=== PATIENT | male | born 1980 | race Caucasian/White ===

== ENCOUNTER → 2018-04-27 00:50 | Outpatient (CLI) | payer MEDICAID, SELFPAY ==
[2018-04-27 11:09] LABS: HCT 44.2 % (40.0-50.0); HGB 14.7 g/dL (13.5-17.5); Mean Corp. HGB Concentration 33.3 g/dL (32.0-36.0); Mean Corpuscular Hemoglobin 31.2 pg (27.0-33.0); Mean Corpuscular Volume 93.8 fL (80-95); Mean Platelet Volume 10.9 fL (8.0-11.0); Platelet Count 244 x1000/uL (130-400); RBC 4.71 m/cumm (4.50-6.00); RBC Distribution Width 13.5 % (11.8-14.1); White Blood Cell Count 6.75 k/cumm (4.4-10.8)
[2018-04-27 11:29] LABS: Hemoglobin A1C 6.4 % (4.5-6.2)
[2018-04-27 11:33] LABS: ALT 36 U/L (12-78); AST 21 U/L (15-37); Albumin 3.6 g/dL (3.4-5.0); Alkaline Phosphatase 87 U/L (46-116); BUN 16 mg/dL (7-18); Bilirubin, Total 0.3 mg/dL (0.2-1.0); Calcium 8.4 mg/dL (8.5-10.1); Chloride 106 mmol/L (98-107); Cholesterol 139 mg/dL (50-200); Glucose 131 mg/dL (70-100); HDL Cholesterol 30 mg/dL (40-60); LDL CHOLESTEROL 92 mg/dL (<100); Potassium 4.3 mmol/L (3.5-5.1); Sodium 141 mmol/L (136-145); Total Protein 6.9 g/dL (6.4-8.2); Triglyceride 138 mg/dL (30-150)
== END ==
PROVIDERS: PCP Family Medicine; Visit Provider Family Medicine
DX: E78.5 Hyperlipidemia, unspecified (principal); R73.03 Prediabetes; G47.33 Obstructive sleep apnea (adult) (pediatric); S39.012A Strain of muscle, fascia and tendon of lower back, initial encounter
CPT/HCPCS: 36415; 80053; 80061; 83721; 85027; 83036; 83735

== ENCOUNTER 2018-12-05 03:01 | Outpatient (CLI) | payer MEDICAID, SELFPAY ==
[2018-12-05 11:13] LABS: Hemoglobin A1C 6.2 % (4.5-6.2)
[2018-12-05 11:17] LABS: ALT 51 U/L (12-78); AST 23 U/L (15-37); Albumin 4.1 g/dL (3.4-5.0); Alkaline Phosphatase 83 U/L (46-116); Anion Gap 12.4 mmol/L (3-11); BUN 18 mg/dL (7-18); Bilirubin, Total 0.4 mg/dL (0.2-1.0); CO2 25.6 mmol/L (21.0-32.0); CREATININE 1.16 mg/dL (0.70-1.30); Calcium 9.1 mg/dL (8.5-10.1); Chloride 104 mmol/L (98-107); Cholesterol 163 mg/dL (50-200); Glucose 133 mg/dL (70-100); HDL Cholesterol 36 mg/dL (40-60); LDL CHOLESTEROL 102 mg/dL (<100); Potassium 4.2 mmol/L (3.5-5.1); Sodium 142 mmol/L (136-145); Total Protein 7.9 g/dL (6.4-8.2); Triglyceride 177 mg/dL (30-150)
== END 2018-12-05 03:21 ==
PROVIDERS: PCP Family Medicine; Visit Provider Family Medicine
DX: Z11.9 Encounter for screening for infectious and parasitic diseases, unspecified (principal); E78.5 Hyperlipidemia, unspecified; Z00.00 Encounter for general adult medical examination without abnormal findings
CPT/HCPCS: 36415; 80053; 80061; 83721; 83036

== ENCOUNTER 2019-03-11 10:32 | Outpatient (CLI) | payer MEDICAID, SELFPAY ==
[2019-03-11 13:02] LABS: ALT 41 U/L (12-78); AST 25 U/L (15-37); Albumin 3.5 g/dL (3.4-5.0); Alkaline Phosphatase 75 U/L (46-116); Anion Gap 9.1 mmol/L (3-11); BUN 15 mg/dL (7-18); Bilirubin, Total 0.4 mg/dL (0.2-1.0); CO2 26.9 mmol/L (21.0-32.0); CREATININE 0.89 mg/dL (0.70-1.30); Calcium 8.6 mg/dL (8.5-10.1); Calculated LDL 85; Chloride 106 mmol/L (98-107); Cholesterol 138 mg/dL (50-200); Glucose 120 mg/dL (70-100); HDL Cholesterol 29 mg/dL (40-60); Hemoglobin A1C 6.3 % (4.5-6.2); Potassium 4.4 mmol/L (3.5-5.1); Sodium 142 mmol/L (136-145); Total Protein 6.7 g/dL (6.4-8.2); Triglyceride 122 mg/dL (30-150)
== END 2019-03-11 10:52 ==
PROVIDERS: PCP Family Medicine; Visit Provider Family Medicine
DX: E11.69 Type 2 diabetes mellitus with other specified complication (principal); E66.9 Obesity, unspecified; E78.5 Hyperlipidemia, unspecified; Z00.00 Encounter for general adult medical examination without abnormal findings
CPT/HCPCS: 36415; 80053; 80061; 83721; 83036

== ENCOUNTER 2019-09-09 07:00 | Outpatient (CLI) | payer MEDICAID, SELFPAY ==
[2019-09-09 13:28] LABS: Hemoglobin A1C 6.4 % (4.5-6.2)
[2019-09-09 13:29] LABS: ALT 36 U/L (16-63); AST 17 U/L (15-37); Albumin 3.8 g/dL (3.4-5.0); Alkaline Phosphatase 79 U/L (46-116); Anion Gap 10.4 mmol/L (3-11); BUN 14 mg/dL (7-18); Bilirubin, Total 0.5 mg/dL (0.2-1.0); CO2 26.6 mmol/L (21.0-32.0); CREATININE 0.99 mg/dL (0.70-1.30); Calcium 8.6 mg/dL (8.5-10.1); Calculated LDL 98 mg/dL; Chloride 106 mmol/L (98-107); Cholesterol 160 mg/dL (<200); Glucose 122 mg/dL (74-106); HDL Cholesterol 35 mg/dL (40-60); Potassium 4.2 mmol/L (3.5-5.1); Sodium 143 mmol/L (136-145); Total Protein 7.2 g/dL (6.4-8.2); Triglyceride 139 mg/dL (<150)
== END 2019-09-09 07:20 ==
PROVIDERS: PCP Family Medicine; Visit Provider Family Medicine
DX: E78.5 Hyperlipidemia, unspecified (principal); E11.9 Type 2 diabetes mellitus without complications; E78.6 Lipoprotein deficiency
CPT/HCPCS: 36415; 80053; 80061; 83036

== ENCOUNTER 2020-05-27 05:09 | Outpatient (CLI) | payer OTHER, SELFPAY ==
[2020-05-27 09:37] LABS: HCT 44.1 % (40.0-50.0); HGB 14.8 g/dL (13.5-17.5); MCH 31.2 pg (27.0-33.0); MCHC 33.6 % (32.0-36.0); MCV 92.8 fL (80-95); MPV 10.4 fL (8.0-11.0); Platelet Count 255 10^3/uL (130-400); RBC 4.75 10^6/uL (4.36-5.78); RDW-SD 44.4 fL; WBC 6.85 10^3/uL (4.4-10.8)
[2020-05-27 09:59] LABS: Hemoglobin A1C 6.7 % (<5.7)
[2020-05-27 10:36] LABS: ALT 43 U/L (16-63); AST 19 U/L (15-37); Albumin 3.7 g/dL (3.4-5.0); Alkaline Phosphatase 79 U/L (46-116); Anion Gap 9.4 mmol/L (3-11); BUN 16 mg/dL (7-18); Bilirubin, Total 0.3 mg/dL (0.2-1.0); CO2 25.6 mmol/L (21.0-32.0); CREATININE 0.92 mg/dL (0.70-1.30); Calcium 8.4 mg/dL (8.5-10.1); Calculated LDL 89 mg/dL (<100); Chloride 108 mmol/L (98-107); Cholesterol 152 mg/dL (<200); Glucose 123 mg/dL (74-106); HDL Cholesterol 32 mg/dL (40-60); Potassium 4.5 mmol/L (3.5-5.1); Sodium 143 mmol/L (136-145); Triglyceride 156 mg/dL (<150)
== END 2020-05-27 05:29 ==
PROVIDERS: PCP Family Medicine; Visit Provider Family Medicine
DX: E11.9 Type 2 diabetes mellitus without complications (principal); E78.5 Hyperlipidemia, unspecified
CPT/HCPCS: 36415; 80053; 80061; 85027; 83036

== ENCOUNTER 2021-03-10 09:39 | Outpatient (CLI) | payer MEDICAID, SELFPAY ==
[2021-03-10 12:49] LABS: Abs Immature Grans 0.02 10^3/uL (0.0-0.06); Absolute Basophil Count 0.11 10^3/uL (0.0-0.2); Absolute Eosinophil Count 0.21 10^3/uL (0.0-0.7); Absolute Lymphocyte Count 1.79 10^3/uL (1.2-3.4); Absolute Monocyte Count 0.53 10^3/uL (0.1-0.8); Absolute Neutrophil Count 3.94 10^3/uL (1.2-6.7); Basophils % 1.7; Eosinophils % 3.2; HCT 44.8 % (40.0-50.0); Immature Grans % 0.3; Lymphocytes % 27.1; MCH 31.3 pg (27.0-33.0); MCHC 33.5 % (32.0-36.0); MCV 93.5 fL (80-95); MPV 10.9 fL (8.0-11.0); Neutrophils % 59.7; Nucleated RBC 0 %; Platelet Count 227 10^3/uL (130-400); RBC 4.79 10^6/uL (4.36-5.78); RDW 12.6 % (11.8-14.1); RDW-SD 43.6 fL
[2021-03-10 13:01] LABS: Hemoglobin A1C 7.8 % (<5.7)
[2021-03-10 13:03] LABS: ALT 61 U/L (16-63); AST 31 U/L (15-37); Albumin 3.6 g/dL (3.4-5.0); Alkaline Phosphatase 85 U/L (46-116); Anion Gap 9.7 mmol/L (3-11); BUN 15 mg/dL (7-18); Bilirubin, Total 0.4 mg/dL (0.2-1.0); CO2 27.3 mmol/L (21.0-32.0); Calcium 8.8 mg/dL (8.5-10.1); Calculated LDL 109 mg/dL (<100); Chloride 103 mmol/L (98-107); Cholesterol 180 mg/dL (<200); Glucose 192 mg/dL (74-106); HDL Cholesterol 34 mg/dL (40-60); Potassium 4.4 mmol/L (3.5-5.1); Sodium 140 mmol/L (136-145); Total Protein 7.1 g/dL (6.4-8.2); Triglyceride 188 mg/dL (<150)
== END 2021-03-10 09:40 | disposition home or self-care (01) ==
PROVIDERS: PCP Family Medicine; Visit Provider Nurse Practitioner Family
DX: E11.9 Type 2 diabetes mellitus without complications (principal); E78.41 Elevated Lipoprotein(a); R73.03 Prediabetes
CPT/HCPCS: 36415; 80053; 80061; 83036; 85025

== ENCOUNTER 2021-04-05 01:17 | Outpatient (CLI) | payer MEDICAID, SELFPAY ==
--- NOTE | 2021-04-05 08:30 | DI.US_ITS ---
Exam(s) US LOWER EXTREMITY VENOUS RT EXAM: US LOWER EXTREMITY VENOUS RT CLINICAL HISTORY: RLE swelling/redness worsening,r60.0 TECHNIQUE: Grayscale, color, and doppler imaging of the deep venous system of the right lower extrem ity was performed. COMPARISON: No exams were available for comparison FINDINGS: There is no evidence of intraluminal thrombus and there is normal compression and augmentation demons trated within the common femoral vein, femoral vein, and popliteal vein. In the ipsilateral calf the interrogated veins also exhibit normal compression/ augmentation properti es. The ipsilateral saphenofemoral junction is patent. There are varicose veins in the right calf-area of redness/discoloration. All of these veins are com pressible and exhibit no evidence of intraluminal thrombus. IMPRESSION: 1. No evidence of DVT in the right lower extremity. 2. Patent varicose veins right calf, as described above. No evidence of superficial thrombophlebiti s. DATA REPOSITORY:
== END 2021-04-05 01:37 ==
PROVIDERS: PCP Family Medicine; Visit Provider Nurse Practitioner Family
DX: I83.91 Asymptomatic varicose veins of right lower extremity (principal)
CPT/HCPCS: 93971

== ENCOUNTER 2021-08-06 00:51 | Outpatient (CLI) | payer MEDICAID, SELFPAY ==
--- NOTE | 2021-08-06 07:42 | DI.RAD_ITS ---
Exam(s) XR LUMBAR SPINE COMP W FLEX/EX EXAM: XR LUMBAR SPINE COMP W FLEX/EX CLINICAL HISTORY: acute low back pain at night,? ALIGNMENT,M54.50 TECHNIQUE: COMPARISON: No exams were available for comparison FINDINGS: Seven views were obtained including flexion and extension lateral views. There is a transitional lum bosacral vertebra. The intervertebral disc spaces appear fairly well maintained. Mild hypertrophic degenerative changes of endplates and facet joints noted throughout the lumbar region. No evidence o f compression fracture. Flexion extension views are unremarkable. IMPRESSION: Mild degenerative changes of the lumbar spine. RADIATION DOSE DELIVERED: Total DLP
== END 2021-08-06 01:11 ==
PROVIDERS: PCP Family Medicine; Visit Provider Family Medicine
DX: M54.59 Other low back pain (principal); M47.816 Spondylosis without myelopathy or radiculopathy, lumbar region
CPT/HCPCS: 72114

== ENCOUNTER 2021-08-14 11:15 | Emergency (ER) | payer MEDICAID, SELFPAY ==
[2021-08-14] VITALS (44 sets, daily range): BP systolic 111–137; BP diastolic 60–89; PULSE 66–87; RESP 11–36; TEMP 36.6–36.7; O2SAT 95–99
--- NOTE | 2021-08-14 11:15 | RT.EKG_ITS ---
APPROVED REPORT Exam: Resting ECG Reason for Exam: chest pain , sob Patient Location: E HR:79 bpm ECG Measurements Heart Rate 79 AXIS WV 160 P 11 QRSd 99 QRS -13 QT 352 T 4 QTc 405 Conclusion Sinus rhythm...normal P axis, V-rate 60- 99 Low voltage, precordial leads...precordial leads <1.0mV. Sinus. T wave inversion in lead III. No STEMI. I have reviewed and interpreted ECG and agree with software generated interpretation.
--- NOTE | 2021-08-14 11:15 | DI.RAD_ITS ---
Exam(s) XR CHEST 2V PA LATERAL EXAM: XR CHEST 2V PA LATERAL CLINICAL HISTORY: CP TECHNIQUE: COMPARISON: CR ABD FLAT UPRIGHT PA CHEST from 10/20/2013 FINDINGS: There is mild elevation of the diaphragm on the right as seen on prior chest radiograph of October 14. There is no gross pleural effusion. Lungs appear clear. The heart is not enlarged. IMPRESSION: No evidence of acute process. RADIATION DOSE DELIVERED: Total DLP
--- NOTE | 2021-08-14 11:47 | W.ED.GENAD ---
Discharge Plan Disposition Patient Disposition: HOME Condition: Stable Discharge Details Clinical Impression: Chest pain Primary Care Provider: Lilian Perkins ED Provider: Danni Aguilera Home Meds and New Rx's Prescriptions: Continued ibuprofen 800 mg tablet 800 mg PO TID PRN (Reason: pain) Qty: 30 RF: 2 (DME) compr.stocking,knee,long,x-lrg Misc See Rx Instructions .ROUTE .MEDSUPPLY Qty: 2 RF: 0 (DME) blood-glucose meter [Blood Glucose Monitoring] Kit See Rx Instructions .ROUTE .MEDSUPPLY Qty: 1 RF: 0 (DME) Blood Glucose Test Strip See Rx Instructions .ROUTE .MEDSUPPLY Qty: 100 RF: 11 (DME) lancets [Fingerstix Lancets] Misc See Rx Instructions .ROUTE .MEDSUPPLY Qty: 100 RF: 11 lisinopril-hydrochlorothiazide 20-12.5 mg tablet 1 tab PO DAILY Qty: 90 RF: 4 metformin 500 mg tablet 1,000 mg PO BID Qty: 180 RF: 3 CPAP 1 ea RF: 0 cyclobenzaprine 5 mg tablet 5 mg PO .qHS and qd prn PRN (Reason: muscle spasm) Qty: 20 RF: 0 Discharge Instructions Instructions: Chest Pain (ED) Additional Instructions: As discussed, your imaging and labs are reassuring here today. No evidence to suggest cardiac cause today. As your pain seems to be so associated with certain positions, I am concerned that he may be having muscular discomfort. This may be associated with your abnormal sleeping position secondary to your chronic back pain. Please keep your upcoming appointment with physical therapy. Would like you to follow-up with primary care in the next 1 to 2 weeks for reevaluation. Please encourage hydration. You may use Tylenol and ibuprofen as needed for discomfort. You may continue with a muscle relaxer to help with your back discomfort. If you develop increased pain, shortness of breath, difficulty breathing, fever/chills or other new/worsening symptom please seek care urgently once again. Referrals: Lilian Perkins MD [Primary Care Provider] - Discharge Data Discharge Date/Time-TO BE ENTERED AT DEPARTURE: 08/14/21 16:18 Medical Decision Making Patient is a pleasant 40-year-old gentleman presenting today with chief complaint of chest pain. States that he has some left-sided chest discomfort for the past 2 days. States it is worsened with certain movements. Reports discomfort when laying flat. Also has discomfort when going from a sitting to a standing position. However, he denies pain increasing when he is simply walking. 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 She denies any shortness of breath. Feels that when he has the discomfort such as when he is laying flat his breathing pattern may differ does not feel frankly short of breath at all. Is not endorsing any pleuritic pain. Denies any nausea or vomiting. Initially, patient was concerned that this may have been associated with acid reflux and did take Tums without any improvement. He denies any personal or familial history of cardiac disease. No radiation of discomfort. Past medical history is pertinent for low back pain, morbid obesity, SHIRLEY, type 2 diabetes, depression and hyperlipidemia. Patient has been admitted to the medication for has not been checking his glucose regularly. Sounds that he is having difficulty with his glucometer. He states that he is being treated currently by his primary care for his low back pain. This has been an ailment for the past several months. He does report that because of his back pain he is not sleeping in a different position and is questioning if this may be was causing his chest comfort. States that he often awakes with increased discomfort both in his chest as well as his neck because he is sleeping in a more upright and scrunched position. On exam, patient appears nontoxic. Hemodynamically stable. He does have reproducible chest pain over the area of discomfort. No rash. Lungs are clear, normal cardiac rotation. Abdomen is benign. No significant lower extremity edema or calf tenderness appreciated. I did consider acute ACS. Patient is not an active smoker, again does not smoke familial history. Will obtain EKG, chest x-ray as well as a troponin. Patient is PERC negative and history is not consistent with a pulmonary embolism at this time. History exam is not consistent with dissection. I do not see indication to suggest infectious etiology at this time. He denies any cough or fever/chills. No other constitutional symptoms. Also consider musculoskeletal source particularly as he is able to link this with new sleeping position and pain is reproducible on exam. As pain is also increased when laying in a more supine position I also considered GERD. Will give aspirin as well as Mylanta. EKG was obtained and reviewed by Dr. Gomez. Patient is in sinus rhythm with a rate of 79. T wave version 1 3, no evidence of STEMI or acute ischemic etiology. Chest x-ray was reviewed by radiologist: FINDINGS: There is mild elevation of the diaphragm on the right as seen on prior chest radiograph of September 2013. There is no gross pleural effusion. Lungs appear clear. The heart is not enlarged. IMPRESSION: No evidence of acute process. Labs reviewed. No leukocytosis. Stable H&H. CMP significant for glucose of 169 which appears to be baseline for the patient. No other significant abnormalities. Initial troponin within normal limits. Plan for delta troponin. Repeat troponin remains less than 0.05. Repeat EKG was obtained, sinus rhythm with a rate of 72. No change from previous. Patient I had a discussion regarding these findings. We discussed the potential differential diagnosis. Again, his history and exam is most spent with musculoskeletal source. However, his history of diabetes and obesity does increase his risk of cardiovascular disease. We will treat this is musculoskeletal pain for now. Patient was given strict return precautions. Have asked that he follow-up with his primary care and discussed potential need for stress testing. As I am leaning much more towards a musculoskeletal cause at this time, I feel that treating this is more appropriate. Patient does have an appointment with physical therapy to begin working on his back pain. Hopefully this will mean that he can again sleep as bed and have resolution of some of his newly developing discomfort. Patient does have Flexeril at home which she can use to help with his discomfort muscle spasms, discussed dosing again with the patient. Advised that this can be sedating and not to drive will take this medication. Encourage hydration. Advised that he seek care urgently once again with any new or worsening symptoms. All his questions and concerns were addressed and he is in agreement this plan. HPI General Mode of arrival: ambulatory. Date/Time Provider Initiated Documentation: 08/14/21 11:16. Limitations to Documentation: no limitations. Information obtained by: patient and RN notes reviewed. History of Present Illness 40 year old M presents to the emergency department with the chief complaint of left sided chest pain, described as mild, with intensity rated at 3. Quality is described as aching, and is localized to the chest. Patient reports no radiation. Patient started experiencing this day(s) (2) and it has been intermittent. No relieving factors improve symptom(s), Movement worsens symptoms (rolling onto left side, laying supine, straining to get up) . Patient notes chest pain; denies cough, diaphoresis, fever/chills, loss of appetite, nausea/vomiting, rash, shortness of breath and weakness. Patient did receive the following treatments prior to arrival, none Related Data Home Medications Medication Instructions Recorded Confirmed Cpap 1 ea 05/01/15 08/04/21 ibuprofen 800 mg tablet 800 mg PO TID PRN #30 tab 11/15/18 08/15/21 Blood Glucose Test #100 each NS 01/06/20 08/04/21 blood-glucose meter #1 each 01/06/20 08/04/21 lancets #100 each 01/06/20 08/04/21 lisinopril 20 1 tab PO DAILY #90 tab 03/22/21 08/15/21 mg-hydrochlorothiazide 12.5 mg tablet metformin 500 mg tablet 1,000 mg PO BID #180 tab-cap 03/22/21 08/15/21 compr.stocking,knee,long,x-lrg #2 ea 06/02/21 08/04/21 cyclobenzaprine 5 mg tablet 5 mg PO .qHS and qd prn PRN #20 tab 06/21/21 08/15/21 Previous Rx's Medication Instructions Recorded ibuprofen 800 mg tablet 800 mg PO TID PRN #30 tab 11/15/18 Blood Glucose Test #100 each NS 01/06/20 blood-glucose meter #1 each 01/06/20 lancets #100 each 01/06/20 lisinopril 20 1 tab PO DAILY #90 tab 03/22/21 mg-hydrochlorothiazide 12.5 mg tablet metformin 500 mg tablet 1,000 mg PO BID #180 tab-cap 03/22/21 compr.stocking,knee,long,x-lrg #2 ea 06/02/21 cyclobenzaprine 5 mg tablet 5 mg PO .qHS and qd prn PRN #20 tab 06/21/21 Allergies Allergy/AdvReac Type Severity Reaction Status Date / Time No Known Allergies Allergy Verified 08/14/21 11:24 General Stated Complaint: Chest Pain MAGDA: 2 Review of Systems Constitutional Constitutional: Reports as per HPI, Denies chills, Denies fever(s), Denies headache(s) and Denies poor appetite Eyes Eyes: Denies change in vision ENT Ears, Nose, Mouth, and Throat: Denies dizziness and Denies headache(s) Cardiovascular Cardiovascular: Reports as per HPI and Denies dyspnea on exertion Respiratory Respiratory: Reports as per HPI, Denies chest congestion, Denies cough, Denies pain on inspiration, Denies pain with cough and Denies dyspnea on exertion Gastrointestinal Gastrointestinal: Reports as per HPI, Denies abdominal pain, Denies diarrhea, Denies nausea and Denies vomiting Musculoskeletal Musculoskeletal: Reports as per HPI and Denies back pain Integumentary/Breasts Skin/Breast: Reports as per HPI and Denies rash Neurologic Neurologic: Reports as per HPI, Denies dizziness and Denies headache(s) [facility] Active Problem List Atypical chest pain (Acute) Chest pain (Acute) Chest pain (Acute) Midline low back pain without sciatica (Acute) Venous insufficiency of right lower extremity (Acute) Primary osteoarthritis of both knees (Chronic 04/17/18) Morbid obesity due to excess calories (Acute 01/18/16) Obstructive sleep apnea syndrome, severe (Acute 06/13/15) Colon adenomas (Acute 02/26/16) Type 2 diabetes mellitus without complication, without long-term current use of insulin (Acute 05/02/18) Edema of lower extremity (Chronic) Refusal of blood transfusions as patient is Cheondoism (Acute) No blood products (Acute) Depressive disorder (Chronic 06/18/08) Hyperlipidemia (Acute 06/18/08) Low HDL (under 40) (Acute 05/02/18) Family history of colon cancer (Acute) Medical History Sigmoid diverticulosis (01/20/17) Sleep apnea Family History Mother Hyperlipidemia Hypertension Father Hypertension Diabetes Sister No problems noted. Brother Colon cancer Rectal cancer Son Depression Hyperlipidemia Son Depression Daughter Depression Maternal Grandfather Colon cancer Skin cancer Paternal Grandfather No problems noted. Maternal Grandmother Colon cancer Diabetes Paternal Grandfather No problems noted. Social History Smoking/Tobacco Use Status: Never Second Hand Exposure: Yes Smoking risk assessment performed?: Yes Alcohol Intake: current Alcohol Intake frequency: holidays/special occasions only Alcohol type: wine Drug use: Never Substance use type: does not use Household members: spouse and children Housing: house Number of Children: 3 Communication Needs: None Education Level: high school Do you need help understanding health information?: Never current occupation: self-employed office cleaning and power washing businesses Pets and animals: Yes Pets and animals: dog(s) Sexually active: Yes Do you think of yourself as: straight/heterosexual Current gender identity: male What is your relationship status?: How often do you talk on the phone with friends or family?: three or more times per week How often do you attend congregational or gnosticism services?: 4 or more times per year Panel score (0-1 are the most socially isolated patients): 3 Cristal/Taoist: Cheondoism Special cristal needs: Yes (No blood or 4 major components) Agree to transfusion: No Seatbelt use: always Drive intox or ride w/intox otr owner operator truck driver: No Do you feel safe at home: Yes Do you feel safe in your relationship?: Yes Exam Const General: cooperative, healthy appearing, comfortable, no acute distress and well developed Nutritional Appearance: well nourished and obese morbidly obese Orientation: alert, awake and oriented x3 Chest Chest: normal inspection of the chest, normal palpation of entire chest wall, no crepitus and tenderness Chest/axillae images: 1. area of discomfort with palpation. No crepitus. No evidence of trauma. No rash. Resp Effort & Inspection: normal respiratory effort, able to speak in complete sentences and no respiratory distress Auscultation: clear to auscultation bilaterally, no rales, no rhonchi and no wheezes Cardio Rate: regular rate Rhythm: regular rhythm Heart Sounds: S1 normal and S2 normal GI Inspection: normal to inspection, no edema and non-distended Palpation: soft, no hepatosplenomegaly, not firm, no guarding, not rigid and nontender Auscultation: normal bowel sounds Skin General skin exam: no rashes or lesions noted Trauma: no lacerations or abrasions Neuro General: patient alert, patient awake and patient oriented x3 Cognition: normal cognition Speech: speech normal Gait: normal gait Extrem General: normal to inspection, capillary refill normal, no pedal edema, no calf tenderness and normal gait Psych Appearance: grossly normal and well kempt Mental Status: mental status grossly normal Speech and Movement: speech and movement normal Course Vital Signs Vital signs: Vital Signs Temperature 36.6 C 08/14/21 11:19 Pulse 75 08/14/21 11:19 Respiratory Rate 18 08/14/21 11:19 Blood Pressure 133/75 08/14/21 11:19 Pulse Oximetry 97 08/14/21 11:19 Temperature 36.6 C 08/14/21 11:19 Temperature Source Skin 08/14/21 11:19 Pulse 75 08/14/21 11:19 Respiratory Rate 18 08/14/21 11:25 Respiratory Effort Non-Labored 08/14/21 11:25 Respiratory Depth Normal 08/14/21 11:25 Respiratory Pattern Normal 08/14/21 11:25 Blood Pressure 133/75 08/14/21 11:19 Blood Pressure Position Supine 08/14/21 11:19 Pulse Oximetry 97 08/14/21 11:19 Oxygen Delivery Method Room Air 08/14/21 11:19 Oxygen Flow Rate 0 08/14/21 11:19 Pain Level 6 08/14/21 11:25
[2021-08-14] MEDS: Aspirin 81 MG CHEW 324 MG CH (11:49)
[2021-08-14] MEDS: Mylanta Suspension 30 ML CUP PO (11:50)
[2021-08-14 12:04] LABS: Abs Immature Grans 0.03 10^3/uL (0.0-0.06); Absolute Eosinophil Count 0.33 10^3/uL (0.0-0.7); Absolute Lymphocyte Count 2.15 10^3/uL (1.2-3.4); Absolute Monocyte Count 0.65 10^3/uL (0.1-0.8); Absolute Neutrophil Count 4.72 10^3/uL (1.2-6.7); Basophils % 1.3; Eosinophils % 4.1; HCT 42.1 % (40.0-50.0); HGB 13.9 g/dL (13.5-17.5); Immature Grans % 0.4; Lymphocytes % 26.9; MCH 31.7 pg (27.0-33.0); MCV 95.9 fL (80-95); MPV 10.3 fL (8.0-11.0); Monocytes % 8.1; Neutrophils % 59.2; Nucleated RBC 0 %; Platelet Count 242 10^3/uL (130-400); RBC 4.39 10^6/uL (4.36-5.78); RDW 12.8 % (11.8-14.1); RDW-SD 44.9 fL; WBC 7.98 10^3/uL (4.4-10.8)
[2021-08-14 12:19] LABS: ALT 38 U/L (16-63); AST 14 U/L (15-37); Albumin 3.3 g/dL (3.4-5.0); Alkaline Phosphatase 87 U/L (46-116); BUN 19 mg/dL (7-18); Bilirubin, Total 0.3 mg/dL (0.2-1.0); CREATININE 1.1 mg/dL (0.70-1.30); Calcium 8.5 mg/dL (8.5-10.1); Chloride 102 mmol/L (98-107); Glucose 169 mg/dL (74-106); Magnesium 1.9 mg/dL (1.8-2.4); Potassium 4.2 mmol/L (3.5-5.1); Sodium 138 mmol/L (136-145); Total Protein 7.2 g/dL (6.4-8.2)
[2021-08-14 12:20] LABS: Troponin I < 0.05 ng/mL (<0.06)
--- NOTE | 2021-08-14 13:01 | DI.VRAD_ITS ---
PROCEDURE INFORMATION: Exam: XR Chest Exam date and time: 08/14/2021 11:25 AM Age: 40 years old Clinical indication: Other: Chest pain TECHNIQUE: Imaging protocol: XR of the chest. Views: 2 views. COMPARISON: CR XR LUMBAR SPINE COMP W FLEX/EX 08/06/2021 12:57 PM FINDINGS: Lungs: No airspace disease or consolidation. Pleural spaces: Unremarkable. No pleural effusion. No pneumothorax. Heart/Mediastinum: Unremarkable. No cardiomegaly. Diaphragm: Elevated right hemidiaphragm. Bones/joints: Unremarkable. IMPRESSION: No acute cardiopulmonary findings. Dictated and Authenticated by: Daniel Franco MD. Ordering:MARVA Razo MD
--- NOTE | 2021-08-14 14:45 | RT.EKG_ITS ---
APPROVED REPORT Exam: Resting ECG Reason for Exam: chest pain Patient Location: E HR:72 bpm ECG Measurements Heart Rate 72 AXIS AR 166 P 18 QRSd 91 QRS -13 QT 375 T 3 QTc 411 Conclusion Sinus rhythm...normal P axis, V-rate 60- 99 Low voltage, precordial leads...precordial leads <1.0mV. Sinus. T wave inversion in lead III. No STEMI. I have reviewed and interpreted ECG and agree with software generated interpretation.
[2021-08-14 16:01] LABS: Troponin I < 0.05 ng/mL (<0.06)
== END 2021-08-14 16:18 | disposition home or self-care (01) ==
PROVIDERS: Emergency Provider Physician Assistant; PCP Family Medicine
DX: R07.89 Other chest pain (principal); E11.9 Type 2 diabetes mellitus without complications; Z79.84 Long term (current) use of oral hypoglycemic drugs
CPT/HCPCS: 36415; 80053; 93005; 99285; 71046; 83735; 84484; 85025; 93010

== ENCOUNTER 2021-08-15 03:36 | Observation (INO) | payer MEDICAID, SELFPAY ==
[2021-08-15] VITALS (29 sets, daily range): BP systolic 92–138; BP diastolic 42–82; PULSE 73–99; RESP 12–24; TEMP 36.2–36.8; O2SAT 95–99
--- NOTE | 2021-08-15 03:30 | RT.EKG_ITS ---
APPROVED REPORT Exam: Resting ECG Reason for Exam: chest pain Patient Location: E HR:85 bpm ECG Measurements Heart Rate 85 AXIS TX 162 P 32 QRSd 100 QRS -6 QT 368 T 13 QTc 437 Conclusion Sinus rhythm...normal P axis, V-rate 60- 99 Low voltage, precordial leads...precordial leads <1.0mV
--- NOTE | 2021-08-15 03:45 | DI.RAD_ITS ---
Exam(s) XR CHEST 2V PA LATERAL EXAM: XR CHEST 2V PA LATERAL CLINICAL HISTORY: chest pain TECHNIQUE: COMPARISON: CR,XR XR CHEST 2V PA LATERAL from 08/14/2021 FINDINGS: Diaphragm is mildly elevated on the right. There is some increase in markings in the lung bases, pro bably due to overlying soft tissue. No focal consolidation. No pleural effusion. Cardiac size is w ithin normal limits. IMPRESSION: No evidence of acute process. RADIATION DOSE DELIVERED: Total DLP
--- NOTE | 2021-08-15 03:49 | ED.GENADUL_ITS ---
Discharge Plan Disposition Patient Disposition: [facility] INPATIENT Condition: Stable Discharge Details Clinical Impression: Chest pain Primary Care Provider: Lilian Perkins ED Provider: Balbir Velazquez Home Meds and New Rx's Prescriptions: No Action ibuprofen 800 mg tablet 800 mg PO TID PRN (Reason: pain) Qty: 30 RF: 2 (DME) compr.stocking,knee,long,x-lrg Misc See Rx Instructions .ROUTE .MEDSUPPLY Qty: 2 RF: 0 (DME) blood-glucose meter [Blood Glucose Monitoring] Kit See Rx Instructions .ROUTE .MEDSUPPLY Qty: 1 RF: 0 (DME) Blood Glucose Test Strip See Rx Instructions .ROUTE .MEDSUPPLY Qty: 100 RF: 11 (DME) lancets [Fingerstix Lancets] Misc See Rx Instructions .ROUTE .MEDSUPPLY Qty: 100 RF: 11 lisinopril-hydrochlorothiazide 20-12.5 mg tablet 1 tab PO DAILY Qty: 90 RF: 4 metformin 500 mg tablet 1,000 mg PO BID Qty: 180 RF: 3 CPAP 1 ea RF: 0 cyclobenzaprine 5 mg tablet 5 mg PO .qHS and qd prn PRN (Reason: muscle spasm) Qty: 20 RF: 0 Medical Decision Making 40 yo male with hx of htn, hld, obesity, who has no prior cardiac history comes in with chief complaint of chest pain. He states for 3 days he has had a burning and pressure sensation in the chest especially with movement. He has never had pain like this before and was seen yesterday and had reassuring labs and ecg and d/c'd home. He had recurrence of pain tonight so came back. He denies smoking history. He is in no distress on exam. The pain is substernal. He has had some radiation to the left arm. He has no abdominal tenderness, clear lungs, no murmurs. Both legs have some swelling, no calf tenderness on exam. EKG unchanged. Will obtain troponin and give asa and troponin. He has no tachycardia or hypoxia so doubt PE. No tearing back pain and normal pulses so doubt dissection. Could be esophageal spasm but given his risk factors concern for possible acs as a cause of his symptoms pts pain significantly decreased with nitro, remains stable. Labs show wbc of 11 otherwise no acute findings. Xray read as atelectasis and less likely pneumonia, he has not had a cough or fever so doubt pneumonia. Discussed results with patient and given his risk factors and persistent pain from yesterday he prefers observation admission, will discuss with hospitalist. Differential Diagnosis Differential Diagnosis: esophageal spasm, unstable angina, nstemi, chest wall pain Medical Records Medical records reviewed: Yes I reviewed the patient's medical records. Imaging Data Radiologic Study: Attestation: I personally reviewed and interpreted this imaging study as follows: Imaging: X-Ray Radiologist's impression: PROCEDURE INFORMATION: Exam: XR Chest Exam date and time: 08/15/2021 3:59 AM Age: 40 years old Clinical indication: Other: Chest pain TECHNIQUE: Imaging protocol: XR of the chest. Views: 2 views. COMPARISON: CR XR CHEST 2V PA LATERAL 08/14/2021 12:20 PM FINDINGS: Lungs: See Soft tissues finding. Pleural spaces: Unremarkable. No pleural effusion. No pneumothorax. Heart/Mediastinum: Unremarkable. No cardiomegaly. Bones/joints: Unremarkable. Soft tissues: Patchy basilar opacities likely reflect overlying soft tissues and or atelectasis. Subtle pneumonia not excluded in the correct clinical setting. IMPRESSION: Patchy basilar opacities likely reflect overlying soft tissues and or atelectasis. Subtle pneumonia not excluded in the correct clinical setting. Lab Data Lab results reviewed: Yes I reviewed the patient's lab results. ECG Data Attestation: I personally reviewed and interpreted this ECG (s) as follows: Prior ECG tracings: available for review Interpretation: sinus rhythm, rate of 85, no acute st t wave ischemic findings 2nd ekg sinus rhythm, rate of 80, no acute st t wave ischemic findings HPI General Mode of arrival: ambulatory . Date/Time Provider Initiated Documentation: 08/15/21 03:37 . Limitations to Documentation: no limitations . Information obtained by: patient . History of Present Illness 40 year old M presents to the emergency department with the chief complaint of chest pain, described as moderate, Quality is described as other (pressure), and is localized to the chest. Patient reports no radiation. Patient started experiencing this day(s) (3) and it has been intermittent. Rest improves symptom(s), Movement worsens symptoms . Patient notes no other symptoms.. Patient did receive the following treatments prior to arrival, none Related Data Home Medications Medication Instructions Recorded Confirmed Cpap 1 ea 05/01/15 08/04/21 ibuprofen 800 mg tablet 800 mg PO TID PRN #30 tab 11/15/18 08/15/21 Blood Glucose Test #100 each NS 01/06/20 08/04/21 blood-glucose meter #1 each 01/06/20 08/04/21 lancets #100 each 01/06/20 08/04/21 lisinopril 20 1 tab PO DAILY #90 tab 03/22/21 08/15/21 mg-hydrochlorothiazide 12.5 mg tablet metformin 500 mg tablet 1,000 mg PO BID #180 tab-cap 03/22/21 08/15/21 compr.stocking,knee,long,x-lrg #2 ea 06/02/21 08/04/21 cyclobenzaprine 5 mg tablet 5 mg PO .qHS and qd prn PRN #20 tab 06/21/21 08/15/21 Previous Rx's Medication Instructions Recorded ibuprofen 800 mg tablet 800 mg PO TID PRN #30 tab 11/15/18 Blood Glucose Test #100 each NS 01/06/20 blood-glucose meter #1 each 01/06/20 lancets #100 each 01/06/20 lisinopril 20 1 tab PO DAILY #90 tab 03/22/21 mg-hydrochlorothiazide 12.5 mg tablet metformin 500 mg tablet 1,000 mg PO BID #180 tab-cap 03/22/21 compr.stocking,knee,long,x-lrg #2 ea 06/02/21 cyclobenzaprine 5 mg tablet 5 mg PO .qHS and qd prn PRN #20 tab 06/21/21 Allergies Allergy/AdvReac Type Severity Reaction Status Date / Time No Known Allergies Allergy Verified 08/14/21 11:24 General Stated Complaint: Chest Pain MAGDA: 2 Review of Systems All systems reviewed & are unremarkable except as noted in HPI and below Constitutional Constitutional: Denies chills, Denies fever(s) and Denies weakness Cardiovascular Cardiovascular: Denies dyspnea Respiratory Respiratory: Denies cough and Denies dyspnea Gastrointestinal Gastrointestinal: Denies abdominal pain, Denies nausea and Denies vomiting Musculoskeletal Musculoskeletal: Denies joint swelling Neurologic Neurologic: Denies weakness Psychiatric Psychiatric: Denies depression [facility] Active Problem List Atypical chest pain (Acute) Chest pain (Acute) Chest pain (Acute) Midline low back pain without sciatica (Acute) Venous insufficiency of right lower extremity (Acute) Primary osteoarthritis of both knees (Chronic 04/17/18) Morbid obesity due to excess calories (Acute 01/18/16) Obstructive sleep apnea syndrome, severe (Acute 06/13/15) Colon adenomas (Acute 02/26/16) Type 2 diabetes mellitus without complication, without long-term current use of insulin (Acute 05/02/18) Edema of lower extremity (Chronic) Refusal of blood transfusions as patient is Congregational (Acute) No blood products (Acute) Depressive disorder (Chronic 06/18/08) Hyperlipidemia (Acute 06/18/08) Low HDL (under 40) (Acute 05/02/18) Family history of colon cancer (Acute) Medical History Sigmoid diverticulosis (01/20/17) Sleep apnea Family History Mother Hyperlipidemia Hypertension Father Hypertension Diabetes Sister No problems noted. Brother Colon cancer Rectal cancer Son Depression Hyperlipidemia Son Depression Daughter Depression Maternal Grandfather Colon cancer Skin cancer Paternal Grandfather No problems noted. Maternal Grandmother Colon cancer Diabetes Paternal Grandfather No problems noted. Social History Smoking/Tobacco Use Status: Never Second Hand Exposure: Yes Smoking risk assessment performed?: Yes Alcohol Intake: current Alcohol Intake frequency: holidays/special occasions only Alcohol type: wine Drug use: Never Substance use type: does not use Household members: spouse and children Housing: house Number of Children: 3 Communication Needs: None Education Level: high school Do you need help understanding health information?: Never current occupation: self-employed office cleaning and power washing businesses Pets and animals: Yes Pets and animals: dog(s) Sexually active: Yes Do you think of yourself as: straight/heterosexual Current gender identity: male What is your relationship status?: How often do you talk on the phone with friends or family?: three or more times per week How often do you attend christian or baptist services?: 4 or more times per year Panel score (0-1 are the most socially isolated patients): 3 Cristal/Congregational: Congregational Special cristal needs: Yes (No blood or 4 major components) Agree to transfusion: No Seatbelt use: always Drive 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 Do you feel safe at home: Yes Do you feel safe in your relationship?: Yes Exam Const General: no acute distress Orientation: alert HENMT Head: normal to inspection Ears: external ears normal General nose exam: external nose normal Mouth: moist mucous membranes Eyes General: appearance normal, both eyes and all related structures Neck Neck: normal visual inspection Resp Effort & Inspection: normal respiratory effort and able to speak in complete sentences Cardio Rate: regular rate GI Palpation: soft and nontender Skin General skin exam: no rashes or lesions noted Neuro General: patient alert and patient oriented x3 Extrem General: normal to inspection Psych Mental Status: mental status grossly normal Course Vital Signs Vital signs: Vital Signs Temperature 36.2 C L 08/15/21 03:38 Pulse 89 08/15/21 03:38 Respiratory Rate 23 08/15/21 03:38 Blood Pressure 108/71 08/15/21 03:38 Pulse Oximetry 97 08/15/21 03:38 Temperature 36.2 C L 08/15/21 03:38 Temperature Source Temporal Artery Scan 08/15/21 03:38 Pulse 89 08/15/21 03:38 Respiratory Rate 23 08/15/21 03:45 Respiratory Effort Short of Breath 08/15/21 03:45 Respiratory Depth Normal 08/15/21 03:45 Respiratory Pattern Tachypnea 08/15/21 03:45 Blood Pressure 108/71 08/15/21 03:38 Blood Pressure Position Sitting 08/15/21 03:38 Pulse Oximetry 97 08/15/21 03:38 Oxygen Delivery Method Room Air 08/15/21 03:38 Oxygen Flow Rate 0 08/15/21 03:38 Pain Level 8 08/15/21 03:38
[2021-08-15 04:05] LABS: Abs Immature Grans 0.13 10^3/uL (0.0-0.06); Absolute Lymphocyte Count 2.37 10^3/uL (1.2-3.4); Absolute Monocyte Count 1.01 10^3/uL (0.1-0.8); Basophils % 0.9; Eosinophils % 3.8; HGB 13.7 g/dL (13.5-17.5); Immature Grans % 1.1; Lymphocytes % 20.7; MCH 31.6 pg (27.0-33.0); MCHC 33.4 % (32.0-36.0); MCV 94.5 fL (80-95); MPV 10.4 fL (8.0-11.0); Monocytes % 8.8; Neutrophils % 64.7; Nucleated RBC 0 %; Platelet Count 249 10^3/uL (130-400); RBC 4.34 10^6/uL (4.36-5.78); RDW-SD 45.5 fL; WBC 11.46 10^3/uL (4.4-10.8)
[2021-08-15 04:07] LABS: Absolute Eosinophil Count 0.44 10^3/uL (0.0-0.7); Absolute Neutrophil Count 7.41 10^3/uL (1.2-6.7)
--- NOTE | 2021-08-15 04:23 | DI.VRAD_ITS ---
PROCEDURE INFORMATION: Exam: XR Chest Exam date and time: 08/15/2021 3:59 AM Age: 40 years old Clinical indication: Other: Chest pain TECHNIQUE: Imaging protocol: XR of the chest. Views: 2 views. COMPARISON: CR XR CHEST 2V PA LATERAL 08/14/2021 12:20 PM FINDINGS: Lungs: See Soft tissues finding. Pleural spaces: Unremarkable. No pleural effusion. No pneumothorax. Heart/Mediastinum: Unremarkable. No cardiomegaly. Bones/joints: Unremarkable. Soft tissues: Patchy basilar opacities likely reflect overlying soft tissues and or atelectasis. Subtle pneumonia not excluded in the correct clinical setting. IMPRESSION: Patchy basilar opacities likely reflect overlying soft tissues and or atelectasis. Subtle pneumonia not excluded in the correct clinical setting. Dictated and Authenticated by: Chris Montiel MD. Ordering:RAHUL Mcgregor MD
[2021-08-15 04:26] LABS: Source Nasal/Nares
[2021-08-15 04:27] LABS: ALT 38 U/L (16-63); AST 16 U/L (15-37); Albumin 3.4 g/dL (3.4-5.0); Alkaline Phosphatase 81 U/L (46-116); Anion Gap 8.2 mmol/L (3-11); BUN 20 mg/dL (7-18); Bilirubin, Total 0.5 mg/dL (0.2-1.0); CO2 27.8 mmol/L (21.0-32.0); Calcium 7.8 mg/dL (8.5-10.1); Chloride 102 mmol/L (98-107); Glucose 149 mg/dL (74-106); Lipase 83 U/L (73-393); Potassium 3.9 mmol/L (3.5-5.1); Sodium 138 mmol/L (136-145); Total Protein 7.1 g/dL (6.4-8.2)
[2021-08-15 04:28] LABS: Troponin I < 0.05 ng/mL (<0.06)
[2021-08-15] MEDS: Aspirin 81 MG CHEW 324 MG CH (04:28)
--- NOTE | 2021-08-15 05:09 | W.PM.HP.N ---
Date of service: 08/15/21 Time of Service: 05:09 Assessment and Plan Assessment and plan (1) Atypical chest pain: Start date: 08/15/21 Status: Acute Assessment and plan: This is a 40-year-old morbidly obese gentleman who presents with left sided chest pain which appears to go into his left arm and is worsened by deep breathing which increases with exertion and with laying on his left side. With his right leg swelling there is some concerns of DVT with PE but ultrasound capabilities are not available and patient is not a candidate for CT because of his weight. We may increase Lovenox to therapeutic dose awaiting further imaging with ultrasound of the lower extremity and VQ scan if available. For now the patient is troponins have been negative and he does not appear to be having a non-STEMI or cardiac pain. His pain is worse with deep inspiration which is concerning for PE and it did resolve with nitroglycerin in the ED which may be indicative of esophageal spasm or angiogram. Patient does have risk factors for CAD. The patient is a Christian and we need to be careful with risk for bleeding while treating possible PE. Patient is a full code. (2) Obstructive sleep apnea syndrome, severe: Status: Chronic Assessment and plan: Chronic problem putting patient at risk for cardiovascular disease and DVT with chronic lower extremity swelling. Continue CPAP while inpatient. (3) Type 2 diabetes mellitus without complication, without long-term current use of insulin: Status: Chronic Assessment and plan: Continue Metformin but consider switching to glucometer measurements with short acting insulin coverage if patient hospitalization become prolonged. He is eating and drinking well. (4) Edema of lower extremity: Status: Chronic Assessment and plan: With recent increase swelling in right lower extremity and need to rule out DVT. His erythema with central lesion does not appear to be cellulitic and will be observed for now though he does have an elevated WBC and we should consider oral antibiotic coverage. History of Present Illness History of Present Illness Chief Complaint: Left chest pain radiating into left arm worsened with deep breathing. 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 He was seen in the ED earlier and cleared for chest wall pain being discharged home. The morning of admission the patient presented with persistent left chest wall and chest discomfort radiating into his left arm which was partially relieved by nitroglycerin sublingually. He also received fentanyl for chest discomfort. He has had a right lower extremity swelling over the last several days with a new sore in the middle of a erythematous patch over the inside of his leg. He does have some chronic swelling in his lower extremities with the right leg worse recently. He states that taking a deep breath with exertion is what makes his left chest pain worse with no true exertional onset of chest pain other than having to breathe deeper and heavier. Patient is overweight and does not meet criteria for CTA of the chest which would be preferred to rule out PE as part of his differential diagnosis. He is on prophylactic Lovenox but this may be increased to therapeutic dose while awaiting further evaluation with patient having no contraindication to anticoagulation. He is comfortable at rest presently except when he takes a deep breath. The patient is morbid obese with sleep apnea wearing CPAP at night. He does have hypertension and diabetes mellitus with no statin therapy but on antihypertensives. Patient does have risk factors for advancing atherosclerotic arterial disease. He also has risk factors for DVT and PE with his obesity and recent right leg swelling. He denies any GI symptoms. He has no focal neurological symptoms. Review of Systems Narrative: 13 point review of systems otherwise unrevealing or stable. Patient does remain fairly active despite his morbid obesity. [facility] Active Problem List Atypical chest pain (Acute) Chest pain (Acute) Chest pain (Acute) Midline low back pain without sciatica (Acute) Venous insufficiency of right lower extremity (Acute) Primary osteoarthritis of both knees (Chronic 04/17/18) Morbid obesity due to excess calories (Acute 01/18/16) Obstructive sleep apnea syndrome, severe (Acute 06/13/15) Colon adenomas (Acute 02/26/16) Type 2 diabetes mellitus without complication, without long-term current use of insulin (Acute 05/02/18) Edema of lower extremity (Chronic) Refusal of blood transfusions as patient is Christian (Acute) No blood products (Acute) Depressive disorder (Chronic 06/18/08) Hyperlipidemia (Acute 06/18/08) Low HDL (under 40) (Acute 05/02/18) Family history of colon cancer (Acute) Medical History Sigmoid diverticulosis (01/20/17) Sleep apnea Family History Mother Hyperlipidemia Hypertension Father Hypertension Diabetes Sister No problems noted. Brother Colon cancer Rectal cancer Son Depression Hyperlipidemia Son Depression Daughter Depression Maternal Grandfather Colon cancer Skin cancer Paternal Grandfather No problems noted. Maternal Grandmother Colon cancer Diabetes Paternal Grandfather No problems noted. Social History Smoking/Tobacco Use Status: Never Second Hand Exposure: Yes Smoking risk assessment performed?: Yes Alcohol Intake: current Alcohol Intake frequency: holidays/special occasions only Alcohol type: wine Drug use: Never Substance use type: does not use Household members: spouse and children Housing: house Number of Children: 3 Communication Needs: None Education Level: high school Do you need help understanding health information?: Never current occupation: self-employed office cleaning and power washing businesses Pets and animals: Yes Pets and animals: dog(s) Sexually active: Yes Do you think of yourself as: straight/heterosexual Current gender identity: male What is your relationship status?: How often do you talk on the phone with friends or family?: three or more times per week How often do you attend catholic or scientology services?: 4 or more times per year Panel score (0-1 are the most socially isolated patients): 3 Cristal/Anabaptist: Christian Special cristal needs: Yes (No blood or 4 major components) Agree to transfusion: No Seatbelt use: always Drive intox or ride w/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 Do you feel safe at home: Yes Do you feel safe in your relationship?: Yes Meds Allergies and Home Medications Allergies Allergy/AdvReac Type Severity Reaction Status Date / Time No Known Allergies Allergy Verified 08/14/21 11:24 Home Medications Medication Instructions Recorded Confirmed Type Cpap 1 ea 05/01/15 08/04/21 History ibuprofen 800 mg tablet 800 mg PO TID PRN #30 tab 11/15/18 08/15/21 Rx Blood Glucose Test #100 each NS 01/06/20 08/04/21 Rx blood-glucose meter #1 each 01/06/20 08/04/21 Rx lancets #100 each 01/06/20 08/04/21 Rx lisinopril 20 1 tab PO DAILY #90 tab 03/22/21 08/15/21 Rx mg-hydrochlorothiazide 12.5 mg tablet metformin 500 mg tablet 1,000 mg PO BID #180 tab-cap 03/22/21 08/15/21 Rx compr.stocking,knee,long,x-lrg #2 ea 06/02/21 08/04/21 Rx cyclobenzaprine 5 mg tablet 5 mg PO .qHS and qd prn PRN #20 tab 06/21/21 08/15/21 Rx Exam Narrative Exam Narrative: General: Patient is appropriate for age, morbidly obese lying in bed comfortably. He is alert and oriented x3. HEENT: Normocephalic, eyes with pupils equal and reactive to light symmetrically, extraocular movement intact and sclera anicteric. Oropharynx with moist mucosa and fair dentition. Neck: Supple without JVD. Back: Stooped posture without CVA tenderness. Lungs: Clear to auscultation and percussion. No rubs. Chest moves symmetrically with inspiration with no palpable tenderness over the left chest. Heart: Regular rate and rhythm with no murmurs or gallops appreciated. No rubs. Abdomen: Obese contour, soft and nontender to palpation with no palpable hepatosplenomegaly. Bowel sounds positive all quadrants. Genitalia/rectal: Exam deferred. Extremities: Nonpitting edema over right leg which is 3+ with negative Homans' sign and area of erythema over the medial leg with central lesion which is not open or draining. No fluctuance to palpation. Left leg has less nonpitting edema and no skin changes. Peripheral pulses intact. No clubbing or cyanosis. Skin: Normal color, warm and dry except for area of erythema and skin changes right medial leg. Good turgor. Neuro: Cranial nerves II to XII grossly intact, no focalizing motor data. Psych: Normal affect and mood, no abnormal thought processes. Remote and recent memory intact. Results Labs Result diagrams: 08/15/21 03:55 08/15/21 06:50 Labs: Laboratory Results - last 24 hr 08/15/21 08/15/21 08/15/21 03:55 03:55 03:55 WBC 11.46 H D RBC 4.34 L Hgb 13.7 Hct 41.0 MCV 94.5 MCH 31.6 MCHC 33.4 RDW 13.0 Plt Count 249 MPV 10.4 Immature Gran % 1.1 Neutrophils % 64.7 Lymphocytes % 20.7 Monocytes % 8.8 Eosinophils % 3.8 Basophils % 0.9 Nucleated RBC % 0 Absolute Neutrophils 7.41 H Absolute Lymphocytes 2.37 Absolute Monocytes 1.01 H Absolute Eosinophils 0.44 Absolute Basophils 0.10 Sodium 138 Potassium 3.9 Chloride 102 Carbon Dioxide 27.8 Anion Gap 8.2 BUN 20 H Creatinine 1.0 Estimated GFR/1.73 m2 >= 60.00 Glucose 149 H Calcium 7.8 L Magnesium 2.0 Total Bilirubin 0.5 AST 16 ALT 38 Alkaline Phosphatase 81 Troponin I < 0.05 NT-Pro-B Natriuret Pep 83 Total Protein 7.1 Albumin 3.4 Lipase 83 COVID-19 Source 08/15/21 04:25 WBC RBC Hgb Hct MCV MCH MCHC RDW Plt Count MPV Immature Gran % Neutrophils % Lymphocytes % Monocytes % Eosinophils % Basophils % Nucleated RBC % Absolute Neutrophils Absolute Lymphocytes Absolute Monocytes Absolute Eosinophils Absolute Basophils Sodium Potassium Chloride Carbon Dioxide Anion Gap BUN Creatinine Estimated GFR/1.73 m2 Glucose Calcium Magnesium Total Bilirubin AST ALT Alkaline Phosphatase Troponin I NT-Pro-B Natriuret Pep Total Protein Albumin Lipase COVID-19 Source Nasal/Nares Last Vital Signs Temp 36.2 C L 08/15/21 03:38 Pulse 84 08/15/21 04:47 Resp 18 08/15/21 04:21 BP 103/42 L 08/15/21 04:47 Pulse Ox 97 08/15/21 04:47
--- NOTE | 2021-08-15 05:15 | RT.EKG_ITS ---
APPROVED REPORT Exam: Resting ECG Reason for Exam: Chest pain Patient Location: E HR:80 bpm ECG Measurements Heart Rate 80 AXIS ND 166 P 28 QRSd 99 QRS -6 QT 366 T 7 QTc 422 Conclusion Sinus rhythm...normal P axis, V-rate 60- 99 Low voltage, precordial leads...precordial leads <1.0mV
[2021-08-15 05:16] LABS: COVID-19 PCR Negative (Negative)
[2021-08-15] MEDS: fentaNYL 100 MCG/2 ML VIAL IVP (05:36)
--- NOTE | 2021-08-15 05:55 | NUR.NOTE ---
Nursing Note: Patient taken to Med/Surg-225 via stretcher while on telemetry for monitoring. Patient left and arrived at Med/Surg unit in Sinus Rhythm with stable vital signs. No distress noted. Patient stood and ambulated to unit bed without difficulty. Care assumed by Med/Surg Nurse.
[2021-08-15] MEDS: Enoxaparin 40 MG/0.4 ML SYR SC (06:29)
[2021-08-15 07:19] LABS: Troponin I < 0.05 ng/mL (<0.06)
[2021-08-15 07:28] LABS: ALT 37 U/L (16-63); AST 12 U/L (15-37); Albumin 3.4 g/dL (3.4-5.0); Alkaline Phosphatase 77 U/L (46-116); Anion Gap 7.7 mmol/L (3-11); BUN 20 mg/dL (7-18); Bilirubin, Total 0.4 mg/dL (0.2-1.0); CO2 28.3 mmol/L (21.0-32.0); Calcium 8.7 mg/dL (8.5-10.1); Calculated LDL 87 mg/dL (<100); Chloride 103 mmol/L (98-107); Cholesterol 147 mg/dL (<200); Glucose 160 mg/dL (74-106); HDL Cholesterol 37 mg/dL (40-60); Potassium 4.4 mmol/L (3.5-5.1); Sodium 139 mmol/L (136-145); Total Protein 7.2 g/dL (6.4-8.2); Triglyceride 117 mg/dL (<150)
[2021-08-15] MEDS: Cyclobenzaprine 10 MG TAB 5 MG PO ×2 (07:31→21:58)
[2021-08-15] MEDS: Acetaminophen 325 MG TAB 650 MG PO ×2 (07:32→21:58)
[2021-08-15 08:01] LABS: NT-proBNP 14 pg/mL (<300)
[2021-08-15] MEDS: Ketorolac 30 MG/ML VIAL IVP (08:49)
[2021-08-15] MEDS: hydroCHLOROthiazide 12.5 MG TAB PO (08:49)
[2021-08-15] MEDS: Normal Saline Flush 10 ML SYR IVP ×2 (08:49→10:43)
[2021-08-15] MEDS: metFORMIN 500 MG TAB 1000 MG PO ×2 (08:49→17:03)
[2021-08-15] MEDS: Lisinopril 20 MG TAB PO (08:50)
[2021-08-15 09:19] LABS: D-Dimer 543 ng/mlFEU (<500)
--- NOTE | 2021-08-15 09:37 | W.PM.PROGNOT ---
Date of Service Date of service: 08/15/21 Time of Service: 09:38 Assessment and Plan Assessment and plan (1) Atypical chest pain: Status: Acute Assessment and plan: Troponin neg x 4. No EKG changes. D-dimer only mildly elevated at 543 (normal < 500), but still reasonable to r/o a pulmonary embolism. V/Q scan and RLE venous doppler ordered. CTA chest not available d/t his large body habitus. Therapeutic lovenox dosing until more information obtained regarding possible DVT/P.E. CXR with atelectesis vs infiltrates. Incentive spirometry. WBC count normal the day prior to admission, now 11.46. Rocephin and doxycycline initiated. Gave a dose of Toradol for the pleuritic sounding chest pain. (2) Morbid obesity due to excess calories: Status: Acute Assessment and plan: Risk factor for DVT/pulmonary embolism as well as CAD. (3) Obstructive sleep apnea syndrome, severe: Status: Acute Assessment and plan: Cont home CPAP when napping and HS (4) Type 2 diabetes mellitus without complication, without long-term current use of insulin: Status: Acute Assessment and plan: Cont metformin 100mg BID Fasting glucose this AM was 160. A1c on 03/10/21 was 7.8%. Consistent CHO/Heart Healthy diet. (5) Hyperlipidemia: Status: Acute Assessment and plan: Not on a statin. Last lipid results in chart are from 2019. Lipid profile ordered. Qualifiers: Hyperlipidemia type: mixed hyperlipidemia Qualified Code(s): E78.2 - Mixed hyperlipidemia Subjective Subjective Patient reports: no new complaints, shortness of breath (with exertion) and afebrile; denies nausea and vomiting Interval history since last seen: He continues to have chest discomfort with deep breathing. No cough/sputum. Exam Narrative Exam Narrative: CPAP / nasal prongs in place. He has been napping after breakfast. Const General: cooperative, no acute distress and not ill appearing Nutritional Appearance: obese Orientation: alert and oriented x3 Resp Effort & Inspection: normal respiratory effort Auscultation: clear to auscultation bilaterally Cardio Rate: regular rate Rhythm: regular rhythm Heart Sounds: S1 normal and S2 normal GI Inspection: obesity Palpation: soft and nontender Skin Full body images: 1. area of faint erythema with small 2-3mm scab centrally. Extrem General: no calf tenderness and edema Laterality: bilateral (tr) Psych Mental Status: mental status grossly normal Speech and Movement: speech and movement normal Objective Last Vital Signs Temp 36.2 C L 08/15/21 06:05 Pulse 84 08/15/21 07:00 Resp 18 08/15/21 06:05 BP 117/63 08/15/21 06:05 Pulse Ox 98 08/15/21 06:05 Laboratory Results - last 24 hr 08/15/21 08/15/21 08/15/21 03:55 03:55 03:55 WBC 11.46 H D RBC 4.34 L Hgb 13.7 Hct 41.0 MCV 94.5 MCH 31.6 MCHC 33.4 RDW 13.0 Plt Count 249 MPV 10.4 Immature Gran % 1.1 Neutrophils % 64.7 Lymphocytes % 20.7 Monocytes % 8.8 Eosinophils % 3.8 Basophils % 0.9 Nucleated RBC % 0 Absolute Neutrophils 7.41 H Absolute Lymphocytes 2.37 Absolute Monocytes 1.01 H Absolute Eosinophils 0.44 Absolute Basophils 0.10 D-Dimer Sodium 138 Potassium 3.9 Chloride 102 Carbon Dioxide 27.8 Anion Gap 8.2 BUN 20 H Creatinine 1.0 Estimated GFR/1.73 m2 >= 60.00 Glucose 149 H Calcium 7.8 L Magnesium 2.0 Total Bilirubin 0.5 AST 16 ALT 38 Alkaline Phosphatase 81 Troponin I < 0.05 NT-Pro-B Natriuret Pep 14 Total Protein 7.1 Albumin 3.4 Triglycerides Total Cholesterol LDL Cholesterol, Calc HDL Cholesterol Lipase 83 TSH COVID-19 Source SARS-CoV-2 (PCR) 08/15/21 08/15/21 08/15/21 04:25 06:50 06:50 WBC RBC Hgb Hct MCV MCH MCHC RDW Plt Count MPV Immature Gran % Neutrophils % Lymphocytes % Monocytes % Eosinophils % Basophils % Nucleated RBC % Absolute Neutrophils Absolute Lymphocytes Absolute Monocytes Absolute Eosinophils Absolute Basophils D-Dimer Sodium Potassium Chloride Carbon Dioxide Anion Gap BUN Creatinine Estimated GFR/1.73 m2 Glucose Calcium Magnesium Total Bilirubin AST ALT Alkaline Phosphatase Troponin I < 0.05 NT-Pro-B Natriuret Pep Total Protein Albumin Triglycerides Total Cholesterol LDL Cholesterol, Calc HDL Cholesterol Lipase TSH Cancelled COVID-19 Source Nasal/Nares SARS-CoV-2 (PCR) Negative 08/15/21 08/15/21 08/15/21 06:50 06:50 08:25 WBC RBC Hgb Hct MCV MCH MCHC RDW Plt Count MPV Immature Gran % Neutrophils % Lymphocytes % Monocytes % Eosinophils % Basophils % Nucleated RBC % Absolute Neutrophils Absolute Lymphocytes Absolute Monocytes Absolute Eosinophils Absolute Basophils D-Dimer 543 H Sodium 139 Potassium 4.4 Chloride 103 Carbon Dioxide 28.3 Anion Gap 7.7 BUN 20 H Creatinine 1.0 Estimated GFR/1.73 m2 >= 60.00 Glucose 160 H Calcium 8.7 Magnesium Total Bilirubin 0.4 AST 12 L ALT 37 Alkaline Phosphatase 77 Troponin I NT-Pro-B Natriuret Pep Total Protein 7.2 Albumin 3.4 Triglycerides 117 Cancelled Total Cholesterol 147 Cancelled LDL Cholesterol, Calc 87 Cancelled HDL Cholesterol 37 L Cancelled Lipase TSH 2.30 COVID-19 Source SARS-CoV-2 (PCR)
[2021-08-15] MEDS: cefTRIAXone 1 GM/50 ML BAG IVPB (10:43)
[2021-08-15] MEDS: Doxycycline Hyclate 100 MG CAP PO ×2 (10:43→20:09)
--- NOTE | 2021-08-15 12:14 | INITIAL_ITS ---
- If Service Date Differs Date of service: 08/15/21 Time of Service: 12:14 Care Management Initial Assess REASON FOR HOSPITALIZATION:: Atypical chest pain PAST MEDICAL HISTORY/PAST SURGICAL HISTORY:: Active Problem List. Atypical chest pain (Acute). Chest pain (Acute). Chest pain (Acute). Midline low back pain without sciatica (Acute). Venous insufficiency of right lower extremity (Acute). Primary osteoarthritis of both knees (Chronic 04/17/18). Morbid obesity due to excess calories (Acute 01/18/16). Obstructive sleep apnea syndrome, severe (Acute 06/13/15). Colon adenomas (Acute 02/26/16). Type 2 diabetes mellitus without complication, without long-term current use of insulin (Acute 05/02/18). Edema of lower extremity (Chronic). Refusal of blood transfusions as patient is Bahai (Acute). No blood products (Acute). Depressive disorder (Chronic 06/18/08). Hyperlipidemia (Acute 06/18/08). Low HDL (under 40) (Acute 05/02/18). Family history of colon cancer (Acute). Medical History. Sigmoid diverticulosis (01/20/17). Sleep apnea PREVIOUS FUNCTIONAL STATUS/SOCIAL/FAMILY SUPPORTS:: Chris lives in [place] with his , Ayala and three children. 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 He is independent with his ADL's at baseline. CURRENT FUNCTIONAL STATUS:: Chris was lying in bed, resting when CM met with him. He reported that he is feeling better than when he arrived, but continues to have chest pain. He stated that he talked to MD, who would like to continue to monitor him overnight. Per report, he will have a VQ scan and RLE venous doppler. He is comfortable with the plan to stay until these tests are complete. CM will continue to follow. ADVANCE DIRECTIVES:: None on file. Has patient been provided with info about the portal/API?: Yes Did the patient sign up for the portal?: Yes (active) CODE STATUS:: Full Code INSURANCE COVERAGE / FINANCIAL ISSUES:: [employer]/ [employer]/ Financial Assist 100% CURRENT HOME/COMMUNITY SERVICES/EQUIPMENT:: No current services or equipment. PRIMARY CARE PHYSICIAN:: Lilian Perkins POTENTIAL DISCHARGE NEEDS:: Follow up appointments. PATIENT/FAMILY EDUCATION NEEDS:: Review discharge instructions and limitations, discussion of self care needs including ask me three. ANTICIPATED BARRIERS TO DISCHARGE:: Awaiting VQ scan and RLE venous doppler, which may not be available until Monday. TRANSPORTATION:: Via private vehicle by family. PLAN:: Anticipate Chris will return home when medically cleared. His will drive him home via private vehicle when ready. He will follow up with his PCP and discharge plan of care. CM will continue to follow.
--- NOTE | 2021-08-15 15:15 | RT.EKG_ITS ---
APPROVED REPORT Exam: Resting ECG Reason for Exam: r/o st changes Patient Location: I HR:87 bpm ECG Measurements Heart Rate 87 AXIS IL 166 P 0 QRSd 82 QRS -2 QT 334 T 5 QTc 402 Conclusion Sinus rhythm...normal P axis, V-rate 60- 99 Low voltage, precordial leads...precordial leads <1.0mV
[2021-08-15] MEDS: methylPREDNISolone SUCC 40 MG VIAL IVP (15:53)
[2021-08-15 16:46] LABS: Troponin I < 0.05 ng/mL (<0.06)
--- NOTE | 2021-08-16 | DI.US_ITS ---
Exam(s) US LOWER EXTREMITY VENOUS RT EXAM: US LOWER EXTREMITY VENOUS RT CLINICAL HISTORY: Swollen R leg.. TECHNIQUE: Lower extremity venous ultrasound performed using grayscale, color-flow, and spectral Do ppler analysis. COMPARISON: No exams were available for comparison FINDINGS: The common femoral, femoral and popliteal veins demonstrate normal compressibility, augmentation, and color Doppler. The posterior tibial veins are patent. No saphenous vein thrombosis or other superfi cial venous thrombosis is seen. No hematoma or Guallpa's cyst is seen. IMPRESSION: Negative lower extremity ultrasound. No evidence of DVT. DATA REPOSITORY:
--- NOTE | 2021-08-16 | DI.NM_ITS ---
Exam(s) NM LUNG SCAN VENT PERF AEROS EXAM: NM LUNG SCAN VENT PERF AEROS CLINICAL HISTORY: Chest pain possible pulmonary embolism. TECHNIQUE: Injected Dose: Ventilation: 30.4 mCi Tc-99m DTPA via inhalation Perfusion: 4.3 mCi Tc-99m MAA via IV COMPARISON: CR,XR XR CHEST 2V PA LATERAL from 08/14/2021 CR,XR XR CHEST 2V PA LATERAL from 08/14/2021 ECG EKG from 08/15/2021 CR,XR XR CHEST 2V PA LATERAL from 08/15/2021 CR,XR XR CHEST 2V PA LATERAL from 08/15/2021 ECG EKG from 08/15/2021 FINDINGS: Chest X-Ray: Clear lungs. Perfusion: Normal. Ventilation:Normal IMPRESSION: 1. Normal VQ examination. . . . Modified PIOPED II criteria Probability Criteria High Two or more segments of V/Q mismatch Low Normal Perfusion, Non segmental perfusion abnormalitie s, pleural effusion in at least 1/3 of pleural cavity with no other defect Radiograph/perfusion matched defect in mid to upper lung confined to segment, one to three small segmental perfusion defects (<25% of segment) Perfusion defect smaller than corresponding radiogra phic lesion. Intermediate All other findings DATA REPOSITORY:
[2021-08-16 03:40] VITALS: BP 126/75; PULSE 78; RESP 20; TEMP 36.5; O2SAT 97
[2021-08-16 06:58] LABS: Abs Immature Grans 0.04 10^3/uL (0.0-0.06); Absolute Basophil Count 0.05 10^3/uL (0.0-0.2); Absolute Eosinophil Count 0.01 10^3/uL (0.0-0.7); Absolute Monocyte Count 0.62 10^3/uL (0.1-0.8); Basophils % 0.4; Eosinophils % 0.1; HCT 40.1 % (40.0-50.0); HGB 13.4 g/dL (13.5-17.5); Immature Grans % 0.3; Lymphocytes % 12.7; MCH 30.9 pg (27.0-33.0); MCHC 33.4 % (32.0-36.0); MCV 92.6 fL (80-95); MPV 12.1 fL (8.0-11.0); Monocytes % 5.3; Neutrophils % 81.2; Nucleated RBC 0 %; Platelet Count 191 10^3/uL (130-400); RBC 4.33 10^6/uL (4.36-5.78); RDW 12.6 % (11.8-14.1); RDW-SD 43.3 fL; WBC 11.61 10^3/uL (4.4-10.8)
[2021-08-16 07:00] VITALS: PULSE 66
[2021-08-16 07:02] LABS: Absolute Lymphocyte Count 1.47 10^3/uL (1.2-3.4); Absolute Neutrophil Count 9.43 10^3/uL (1.2-6.7)
[2021-08-16 07:35] VITALS: BP 109/69; PULSE 79; RESP 18; TEMP 36.3; O2SAT 97
[2021-08-16 07:37] LABS: ALT 38 U/L (16-63); AST 20 U/L (15-37); Albumin 3.2 g/dL (3.4-5.0); Alkaline Phosphatase 64 U/L (46-116); Anion Gap 9.5 mmol/L (3-11); BUN 14 mg/dL (7-18); Bilirubin, Total 0.4 mg/dL (0.2-1.0); CO2 24.5 mmol/L (21.0-32.0); CREATININE 0.8 mg/dL (0.70-1.30); Chloride 102 mmol/L (98-107); Glucose 211 mg/dL (74-106); Potassium 4.2 mmol/L (3.5-5.1); Sodium 136 mmol/L (136-145); Total Protein 7.4 g/dL (6.4-8.2)
[2021-08-16] MEDS: hydroCHLOROthiazide 12.5 MG TAB PO (07:41)
[2021-08-16] MEDS: Doxycycline Hyclate 100 MG CAP PO (07:41)
[2021-08-16] MEDS: Lisinopril 20 MG TAB PO (07:42)
[2021-08-16] MEDS: metFORMIN 500 MG TAB 1000 MG PO (07:42)
[2021-08-16] MEDS: cefTRIAXone 1 GM/50 ML BAG IVPB (10:01)
[2021-08-16] MEDS: Normal Saline Flush 10 ML SYR IVP (10:01)
[2021-08-16 11:04] VITALS: BP 121/75; PULSE 81; RESP 17; TEMP 37.7; O2SAT 96
--- NOTE | 2021-08-16 14:48 | W.PM.DS.N ---
Date of service: 08/16/21 Time of Service: 14:48 DS: Diagnosis Discharge Diagnosis (1) Atypical chest pain: Status: Acute (2) Obstructive sleep apnea syndrome, severe: Status: Chronic (3) Type 2 diabetes mellitus without complication, without long-term current use of insulin: Status: Chronic (4) Edema of lower extremity: Status: Chronic Discharge Plan Disposition Patient Disposition: HOME Condition: Good Discharge Details Reason For Visit: Atypical Chest Admit Date/Time: 08/15/21 05:15 Admit Provider: Edson Tariq Attending Provider: Edson Tariq Primary Care Provider: Lilian Perkins Hospital Course Hospital Course: 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 He was seen in the ED earlier and cleared for chest wall pain being discharged home. The morning of admission the patient presented with persistent left chest wall and chest discomfort radiating into his left arm which was partially relieved by nitroglycerin sublingually. He also received fentanyl for chest discomfort. He has had a right lower extremity swelling over the last several days with a new sore in the middle of a erythematous patch over the inside of his leg. He does have some chronic swelling in his lower extremities with the right leg worse recently. He states that taking a deep breath with exertion is what makes his left chest pain worse with no true exertional onset of chest pain other than having to breathe deeper and heavier. Patient is overweight and does not meet criteria for CTA of the chest which would be preferred to rule out PE as part of his differential diagnosis. His d-dimer was only minimally elevated at 543. Prophylactic Lovenox was initiated but subsequently iincreased to therapeutic dose while awaiting further evaluation for a pulmonary embolism with a V/Q scan. He was noted to be comfortable at rest at time of hospitalist initial evaluation except when he took a deep breath. The patient is morbid obese with sleep apnea wearing CPAP at night. He does have hypertension and diabetes mellitus with no statin therapy but on antihypertensives. Patient does have risk factors for advancing atherosclerotic arterial disease. He also has risk factors for DVT and PE with his obesity and recent right leg swelling. He denies any GI symptoms. He has no focal neurological symptoms. His CXR was equivical for appearance of infiltrates. An early pneumonia could account for his symptoms. His WBC count was mildly elevated at 11.46. Ceftriaxone and oral doxycycline were initiated. He was given a single dose of Toradol. The following day, his pain had resolved. A venous doppler study of his RLE showed no DVT. His edema had resolved. He reported urinating a significantly more than usual amount overnight. The V/Q scan was low probability for a pulmonary embolus. He will continue Doxycycline BID for a 5 day course. Follow up with PCP in 1 week. Home Meds and New Rx's Prescriptions: New doxycycline hyclate 100 mg Capsule 100 mg PO BID Qty: 10 RF: 0 Continued ibuprofen 800 mg tablet 800 mg PO TID PRN (Reason: pain) Qty: 30 RF: 2 lisinopril-hydrochlorothiazide 20-12.5 mg tablet 1 tab PO DAILY Qty: 90 RF: 4 metformin 500 mg tablet 1,000 mg PO BID Qty: 180 RF: 3 CPAP 1 ea RF: 0 cyclobenzaprine 5 mg tablet 5 mg PO .qHS and qd prn PRN (Reason: muscle spasm) Qty: 20 RF: 0 No Action (DME) compr.stocking,knee,long,x-lrg Misc See Rx Instructions .ROUTE .MEDSUPPLY Qty: 2 RF: 0 (DME) blood-glucose meter [Blood Glucose Monitoring] Kit See Rx Instructions .ROUTE .MEDSUPPLY Qty: 1 RF: 0 (DME) Blood Glucose Test Strip See Rx Instructions .ROUTE .MEDSUPPLY Qty: 100 RF: 11 (DME) lancets [Fingerstix Lancets] Misc See Rx Instructions .ROUTE .MEDSUPPLY Qty: 100 RF: 11 Discharge Instructions Instructions: Doxycycline (By mouth), Chest Pain (DC) Stand Alone Forms: Nursing Discharge Form Referrals: Lilian Perkins MD [Primary Care Provider] - 08/27/21 2:40 pm Activity:: Activity as Tolerated Equipment/Supplies:: No Equipment Needed Diet:: resume usual diet Discharge Orders Discharge Orders: Discharge Order (Routine); Ordered 08/16/21 Ordered By: Ivan Linn Discharge Data Discharge Date/Time-TO BE ENTERED AT DEPARTURE: 08/16/21 15:15 DS: Summary Time Spent with Patient providing and/or coordinating discharge services: Greater than 30 minutes Status at Discharge Functional status at discharge: independent ambulation Overall status at discharge: patient is back to baseline Mental Status: mental status grossly normal Speech and Movement: speech and movement normal Mood: congruent mood Affect: normal affect Exam Narrative Exam Narrative: Pt ambulating from bathroom. Const General: cooperative, no acute distress and not ill appearing Nutritional Appearance: obese Orientation: alert and oriented x3 Resp Effort & Inspection: normal respiratory effort Auscultation: clear to auscultation bilaterally Cardio Rate: regular rate Rhythm: regular rhythm Heart Sounds: S1 normal and S2 normal GI Inspection: obesity Palpation: soft and nontender Extrem General: no pedal edema and no calf tenderness Psych Mental Status: mental status grossly normal Speech and Movement: speech and movement normal Mood: congruent mood Affect: normal affect DS: Data Vitals/I&O Vitals and I&O: Vital Signs Temperature 37.7 C H 08/16/21 11:04 Temperature Source Tympanic 08/16/21 11:04 Pulse 81 08/16/21 11:04 Pulse Rhythm Regular 08/16/21 08:21 Pulse 74 08/15/21 06:02 Respiratory Rate 17 08/16/21 11:04 Respiratory Effort Non-Labored 08/16/21 08:21 Respiratory Depth Normal 08/16/21 08:21 Respiratory Pattern Normal 08/16/21 08:21 Blood Pressure 121/75 08/16/21 11:04 Blood Pressure Mean 73 08/15/21 05:46 Blood Pressure Position Sitting 08/15/21 03:38 Pulse Oximetry 96 08/16/21 11:04 Oxygen Delivery Method Room Air 08/16/21 11:04 Oxygen Flow Rate 0 08/16/21 11:04 Pain Level 0 08/16/21 11:04 Comment 08/15/21 04:47 Intake & Output 08/15/21 08/16/21 08/16/21 23:59 11:59 23:59 Intake Total 240 / 290 Balance 240 / 290 Weight 205 kg Intake: Oral 240 / 240 Other: Urine Color Yellow Urine Appearance Clear Comment pT has told this RN BURN that he has gone to the bathroom alot today and voided alot. Voiding Methods Toilet Toilet Data Completed and Pending Labs on day of discharge: Labs from last 24 hours 08/16/21 08/16/21 08/15/21 06:10 06:10 16:18 WBC 11.61 H RBC 4.33 L Hgb 13.4 L Hct 40.1 MCV 92.6 MCH 30.9 MCHC 33.4 RDW 12.6 Plt Count 191 MPV 12.1 H Immature Gran % 0.3 Neutrophils % 81.2 Lymphocytes % 12.7 Monocytes % 5.3 Eosinophils % 0.1 Basophils % 0.4 Nucleated RBC % 0 Absolute Neutrophils 9.43 H Absolute Lymphocytes 1.47 Absolute Monocytes 0.62 Absolute Eosinophils 0.01 Absolute Basophils 0.05 Sodium 136 Potassium 4.2 Chloride 102 Carbon Dioxide 24.5 Anion Gap 9.5 BUN 14 D Creatinine 0.8 Estimated GFR/1.73 m2 >= 60.00 Glucose 211 H Calcium 9.0 Total Bilirubin 0.4 AST 20 ALT 38 Alkaline Phosphatase 64 Troponin I < 0.05 Total Protein 7.4 Albumin 3.2 L Preliminary micro results at discharge 08/15/21 05:00 Blood Culture - Preliminary Blood NO GROWTH 24 HOURS 08/15/21 05:00 Blood Culture - Preliminary Blood NO GROWTH 24 HOURS [facility] Active Problem List Atypical chest pain (Acute) Chest pain (Acute) Chest pain (Acute) Midline low back pain without sciatica (Acute) Venous insufficiency of right lower extremity (Acute) Primary osteoarthritis of both knees (Chronic 04/17/18) Morbid obesity due to excess calories (Acute 01/18/16) Obstructive sleep apnea syndrome, severe (Chronic 06/13/15) Colon adenomas (Acute 02/26/16) Type 2 diabetes mellitus without complication, without long-term current use of insulin (Chronic 05/02/18) Edema of lower extremity (Chronic) Refusal of blood transfusions as patient is Judaism (Acute) No blood products (Acute) Depressive disorder (Chronic 06/18/08) Hyperlipidemia (Acute 06/18/08) Low HDL (under 40) (Acute 05/02/18) Family history of colon cancer (Acute) Medical History Sigmoid diverticulosis (01/20/17) Sleep apnea Family History Mother Hyperlipidemia Hypertension Father Hypertension Diabetes Sister No problems noted. Brother Colon cancer Rectal cancer Son Depression Hyperlipidemia Son Depression Daughter Depression Maternal Grandfather Colon cancer Skin cancer Paternal Grandfather No problems noted. Maternal Grandmother Colon cancer Diabetes Paternal Grandfather No problems noted. Social History Smoking/Tobacco Use Status: Never Second Hand Exposure: Yes Smoking risk assessment performed?: Yes Alcohol Intake: current Alcohol Intake frequency: holidays/special occasions only Alcohol type: wine Drug use: Never Substance use type: does not use Household members: spouse and children Housing: house Number of Children: 3 Communication Needs: None Education Level: high school Do you need help understanding health information?: Never current occupation: self-employed office cleaning and power washing businesses Pets and animals: Yes Pets and animals: dog(s) Sexually active: Yes Do you think of yourself as: straight/heterosexual Current gender identity: male What is your relationship status?: How often do you talk on the phone with friends or family?: three or more times per week How often do you attend scientology or caodaism services?: 4 or more times per year Panel score (0-1 are the most socially isolated patients): 3 Cristal/Druze: Judaism Special cristal needs: Yes (No blood or 4 major components) Agree to transfusion: No Seatbelt use: always Drive intox or ride w/intox waste collection driver: No Do you feel safe at home: Yes Do you feel safe in your relationship?: Yes
--- NOTE | 2021-08-16 19:35 | PDOC.CMDIS ---
- If Service Date Differs Date of service: 08/16/21 Time of Service: 19:35 LACE Index Scoring Tool - Questions: Length of Stay (in days): 2 Acuity (Admit via E.D.?): Yes Comorbidities: Diabetes w/o Complication E.D. Visits: 2 - Answers: Total Score: 8 Risk of Readmission: Low Risk Care Management Discharge Reason for Hospitalization: Atypical chest pain Discharge Plan: Chris returned home today with no new services. His drove him home via private vehicle. He will follow up with his PCP and discharge plan of care. Patient/Family Education Needs: Review discharge instructions regarding activity levels and medications, discussion of self care needs including ask me three.
== END 2021-08-16 15:15 | disposition home or self-care (01) ==
LOC: ER 05:33 → MS 05:53
PROVIDERS: Family Medicine; Admitting Provider Family Medicine; Emergency Provider Emergency Medicine; PCP Family Medicine; Visit Provider Family Medicine
DX: R07.89 Other chest pain (principal); G47.33 Obstructive sleep apnea (adult) (pediatric); E66.01 Morbid (severe) obesity due to excess calories; E11.9 Type 2 diabetes mellitus without complications; E78.2 Mixed hyperlipidemia; Z68.43 Body mass index [BMI] 50.0-59.9, adult; R60.0 Localized edema; I87.2 Venous insufficiency (chronic) (peripheral); M17.0 Bilateral primary osteoarthritis of knee; F32.A Depression, unspecified; Z79.84 Long term (current) use of oral hypoglycemic drugs
CPT/HCPCS: 36415; 80053; 80061; 83690; 87040; 87635; 93005; 96374; 99285; J1650; 71046; 78582; 83735; 83880; 84443; 84484; 85025; 85379; 93010; 93971; 99217; 99220; G0378; J0696; J1885; J3010

== ENCOUNTER 2021-09-06 01:01 | Outpatient (CLI) | payer MEDICAID, SELFPAY ==
--- NOTE | 2021-09-06 06:45 | ETT_ITS ---
APPROVED REPORT Exam: Exercise Treadmill Patient Location: Out-Patient Room/Bed: Stress Nurse: Ashtyn Kaba RN Ordering Provider:MADHAVI COCHRAN MD, Contact Number: [phone] BMI: 53.47 Baseline Rhythm: Sinus Rhythm Comment: low voltage, precoridal leads Indications: ATYPICAL CHEST PAIN, MORBID OBESITY, DIABETES Medical History Medical History: DM II, Morbid obesity, Sleep apnea, HLD, HTN, Venous insufficiency of lower extremit y Cardiac Medications: Lisinopril, Metformin, Empagliflozin Allergies: No known drug allergies Cardiac Risk Factors: FHX of CAD, Hyperlipidemia, HTN, Diabetes (non-insulin), Obesity Previous Cardiac Procedures: None Pretest Chest Pain Characteristics: No chest pain Exercise History: Sedentary Physical Disabilities: Arthritis in knees Lung Sounds: Clear to auscultation Heart Sounds: Regular Stress Test Details Test: Exercise stress testing was performed using a Godfrey protocol. Rest Stress HR Resting HR Supine: 78 bpm Max Heart Rate (APMHR): 178 bpm Resting HR Standin bpm Target HR (85% APMHR): 151 bpm Max HR Achieved: 164 bpm % of APMHR: 92 Recovery HR: 99 bpm HR response to stress: Accelerated HR response to stress BP Resting BP Supine: 140/80 mmHg Resting BP Standin/82 mmHg Max BP: 174/94 mmHg Recovery BP: 148/88 mmHg BP response to stress: Normal blood pressure response to stress. ECG Resting ECG: Sinus Rhythm Ectopy: None Comment: low voltage, precordial leads Stress ECG: Sinus Tachycardia ST Change: No significant ST segment changes noted Arrhythmia: PVCs Comment: Significant artifact with exercise. Unable to accurately measure ST segment changes. Recovery ECG: Sinus Tachycardia Recovery ST Change: No significant ST segment changes noted Recovery Arrhythmia: None Comment: low voltage, precordial leads. Clinical Reason for Termination: Dyspnea Stress Symptoms: Dyspnea Exercise duration: 5 min47 sec Highest Stage Reached: Stage 2: 2.5 mph at 12% grade. Exercise capacity: 7.05 METs Jones Treadmill Score: 5 Rate Pressure Product: [id number] Stress ECG Conclusion 1. Patient exercised for 5 minutes and 47 seconds (7 METS). Patient no symptoms suggestive of ischem ia. Exercise was stopped due to dyspnea. Overall exercise tolerance was decreased given the patient 's age. 2. The patient's heart rate and blood pressure augmented appropriately. 3. There were no specific ECG changes suggestive of ischemia though significant baseline wander decre ased sensitivity of this exam. Jones Treadmill Score is 5 which is Low risk. Stress Test Summary STAGE Time (mins) Speed (mph) Grade (%) HR BP SYMPTOMS METS Supine 78 140/80 Standing 88 144/82 1 3 1.7 10 128 152/88 SpO2 96%, mild SOB 4.6 2 6 2.5 12 162 160/88 SpO2 96%, mod SOB 7 1 min recovery 146 162/90 3 min recovery 107 174/94 6 min recovery 99 148/88
== END 2021-09-06 01:21 ==
PROVIDERS: PCP Family Medicine; Visit Provider Family Medicine
DX: E11.9 Type 2 diabetes mellitus without complications (principal); E66.01 Morbid (severe) obesity due to excess calories; R07.89 Other chest pain; Z82.49 Family history of ischemic heart disease and other diseases of the circulatory system; E78.5 Hyperlipidemia, unspecified
CPT/HCPCS: 93017

== ENCOUNTER 2021-09-16 03:48 | Outpatient (CLI) | payer MEDICAID, SELFPAY ==
[2021-09-16] MEDS: Inhaler, Assist Device 1 EACH MC (14:10)
[2021-09-16] MEDS: Albuterol HFA 18 GM 200 PUFF INH IH (14:10)
--- NOTE | 2021-09-20 13:06 | W.PFT ---
Date of service: 09/16/21 Time of Service: 13:01 Pulmonary Function Test Result Requesting Provider Lilian Perkins Indications: Dyspnea on exertion Interpretation Spirometry: There is no airflow limitation. There is no significant bronchodilator response. There is a restrictive pattern to spirometry. Lung Volumes: Lung volumes are normal. Diffusion Capacity: Diffusion is normal. Airway Pressure: The airways resistance is normal. Impression Restrictive pattern to spirometry with normal lung volumes. The low FVC likely represents pseudo-restriction from obesity. Clinical Correlation therefore is recommended.
== END 2021-09-16 03:49 | disposition home or self-care (01) ==
PROVIDERS: PCP Family Medicine; Visit Provider Family Medicine
DX: R06.09 Other forms of dyspnea (principal); R94.2 Abnormal results of pulmonary function studies; E66.9 Obesity, unspecified
CPT/HCPCS: 94060; 94726; 94729

== ENCOUNTER 2022-01-20 02:57 | Outpatient (CLI) | payer MEDICAID, SELFPAY ==
[2022-01-20 12:51] LABS: Hemoglobin A1C 6.7 % (<5.7)
[2022-01-20 13:03] LABS: Anion Gap 10.2 mmol/L (3-11); BUN 16 mg/dL (7-18); CO2 24.8 mmol/L (21.0-32.0); CREATININE 0.9 mg/dL (0.70-1.30); Calcium 8.9 mg/dL (8.5-10.1); Chloride 106 mmol/L (98-107); Glucose 137 mg/dL (74-106); Potassium 4.5 mmol/L (3.5-5.1); Sodium 141 mmol/L (136-145)
[2022-01-20 13:04] LABS: COMMENT (LAB VIEW ONLY) 117.94 mg/dL; Microalb ug/mg Crea 29.5 ug/mg Cr
== END 2022-01-20 02:58 | disposition home or self-care (01) ==
LOC: LOS 02:57
PROVIDERS: PCP Family Medicine; Visit Provider Family Medicine
DX: E11.9 Type 2 diabetes mellitus without complications (principal); E03.9 Hypothyroidism, unspecified; F32.9 Major depressive disorder, single episode, unspecified; E66.9 Obesity, unspecified
CPT/HCPCS: 36415; 80048; 82043; 82570; 83036; 84443

== ENCOUNTER 2022-11-16 02:40 | Outpatient (CLI) | payer MEDICAID, SELFPAY ==
[2022-11-16 12:47] LABS: Anion Gap 10.3 mmol/L (3-11); BUN 21 mg/dL (7-18); CO2 26.7 mmol/L (21.0-32.0); Calcium 9.4 mg/dL (8.5-10.1); Calculated LDL 95 mg/dL (<100); Chloride 104 mmol/L (98-107); Cholesterol 160 mg/dL (<200); Estimated GFR 95.18 (mL/min/1.73m2); Glucose 122 mg/dL (74-106); HDL Cholesterol 38 mg/dL (40-60); Potassium 4.4 mmol/L (3.5-5.1); Sodium 141 mmol/L (136-145); Triglyceride 139 mg/dL (<150)
[2022-11-16 12:50] LABS: Hemoglobin A1C 6.1 % (<5.7)
== END 2022-11-16 02:41 | disposition home or self-care (01) ==
LOC: LOS 02:40
PROVIDERS: PCP Family Medicine; Visit Provider Family Medicine
DX: E11.9 Type 2 diabetes mellitus without complications (principal); E66.01 Morbid (severe) obesity due to excess calories; F32.89 Other specified depressive episodes; E78.5 Hyperlipidemia, unspecified
CPT/HCPCS: 36415; 80048; 80061; 83036

== ENCOUNTER 2023-05-05 02:31 | Outpatient (CLI) | payer MEDICAID, SELFPAY ==
[2023-05-05 13:57] LABS: COMMENT (LAB VIEW ONLY) 72.31 mg/dL; Microalb ug/mg Crea 11.1 ug/mg Cr
== END 2023-05-05 02:32 | disposition home or self-care (01) ==
LOC: LBO 02:32
PROVIDERS: PCP Family Medicine; Visit Provider Family Medicine
DX: E11.9 Type 2 diabetes mellitus without complications (principal)
CPT/HCPCS: 82043; 82570

== ENCOUNTER 2023-12-27 05:08 | Outpatient (CLI) | payer MEDICAID, SELFPAY ==
[2023-12-27 09:56] LABS: ALT 38 U/L (16-63); AST 16 U/L (15-37); Albumin 3.9 g/dL (3.4-5.0); Alkaline Phosphatase 75 U/L (46-116); Anion Gap 9.6 mmol/L (3-11); BUN 22 mg/dL (7-18); Bilirubin, Total 0.4 mg/dL (0.2-1.0); CO2 29.4 mmol/L (21.0-32.0); Calcium 9.4 mg/dL (8.5-10.1); Calculated LDL 104 mg/dL (<100); Chloride 104 mmol/L (98-107); Cholesterol 171 mg/dL (<200); Estimated GFR 94.59 (mL/min/1.73m2); Glucose 130 mg/dL (74-106); HDL Cholesterol 40 mg/dL (40-60); Potassium 4.9 mmol/L (3.5-5.1); Sodium 143 mmol/L (136-145); Total Protein 7.7 g/dL (6.4-8.2); Triglyceride 139 mg/dL (<150)
[2023-12-27 11:14] LABS: Hemoglobin A1C 6.5 % (<5.7)
== END 2023-12-27 05:09 | disposition home or self-care (01) ==
LOC: LBO 05:08
PROVIDERS: PCP Family Medicine; Visit Provider Family Medicine
DX: R73.01 Impaired fasting glucose (principal); E11.9 Type 2 diabetes mellitus without complications; Z00.00 Encounter for general adult medical examination without abnormal findings; Z13.6 Encounter for screening for cardiovascular disorders
CPT/HCPCS: 36415; 80053; 80061; 83036

== ENCOUNTER 2024-03-22 09:44 | Outpatient (CLI) | payer MEDICAID, SELFPAY ==
[2024-03-22 11:42] LABS: Vitamin D 25 Total 24.2 ng/mL (30-100)
== END 2024-03-22 09:45 | disposition home or self-care (01) ==
LOC: LBO 09:45
PROVIDERS: PCP Family Medicine; Visit Provider Family Medicine
DX: E66.01 Morbid (severe) obesity due to excess calories (principal)
CPT/HCPCS: 36415; 82306

== ENCOUNTER 2024-08-09 11:35 | Outpatient (CLI) | payer MEDICAID, SELFPAY ==
[2024-08-09 12:46] LABS: ALT 43 U/L (16-63); AST 21 U/L (15-37); Albumin 3.9 g/dL (3.4-5.0); Alkaline Phosphatase 88 U/L (46-116); Anion Gap 11.9 mmol/L (3-11); BUN 21 mg/dL (7-18); Bilirubin, Total 0.33 mg/dL (0.2-1.0); CO2 26.1 mmol/L (21.0-32.0); Calcium 9.3 mg/dL (8.5-10.1); Calculated LDL 99 mg/dL (<100); Chloride 105 mmol/L (98-107); Cholesterol 187 mg/dL (<200); Estimated GFR 94.59 (mL/min/1.73m2); Glucose 141 mg/dL (74-106); HDL Cholesterol 45 mg/dL (40-60); Potassium 4.1 mmol/L (3.5-5.1); Sodium 143 mmol/L (136-145); Triglyceride 218 mg/dL (<150)
[2024-08-09 13:55] LABS: COMMENT (LAB VIEW ONLY) 38.71 mg/dL; Microalb ug/mg Crea 19.6 ug/mg Cr
== END 2024-08-09 11:36 | disposition home or self-care (01) ==
LOC: LOS 11:35
PROVIDERS: PCP Family Medicine; Referring Provider Family Medicine; Visit Provider Family Medicine
DX: E11.9 Type 2 diabetes mellitus without complications (principal); B07.9 Viral wart, unspecified; Z23 Encounter for immunization; E66.01 Morbid (severe) obesity due to excess calories; Z68.43 Body mass index [BMI] 50.0-59.9, adult; F32.9 Major depressive disorder, single episode, unspecified
CPT/HCPCS: 36415; 80053; 80061; 82043; 82570